=== PATIENT | male | born 1930 | race Native Hawaiian/Other Pacific Islander ===

== ENCOUNTER 2019-01-24 11:51 | Outpatient (CLI) | payer OTHER | END 2019-01-24 11:55 | disposition short-term general hospital (02) | LOC: AMB 11:51 | DX: R53.1 Weakness (principal); M79.605 Pain in left leg; M79.604 Pain in right leg; R06.09 Other forms of dyspnea | CPT/HCPCS: A0425; A0429 ==

== ENCOUNTER 2019-01-24 12:08 | Inpatient (IN) | payer OTHER ==
[~2019-01-24] VITALS: Ht 172.7 cm; Wt 64.9 kg
[2019-01-24] VITALS (8 sets, daily range): BP systolic 145–174; BP diastolic 50–79; TEMP 97.3–98.8; Ht 172.7 cm; Wt 64.9 kg
[2019-01-24 13:14] LABS: PLATELET COUNT 183 K/uL (142-355)
[2019-01-24 13:17] LABS: POTASSIUM 4.4 mmol/L (3.6-5.2)
[2019-01-25 04:00] VITALS: BP 152/61; TEMP 98.1
[2019-01-25 08:00] VITALS: BP 199/61; TEMP 97.9
[2019-01-25 10:49] LABS: PLATELET COUNT 176 K/uL (142-355)
[2019-01-25 11:02] LABS: POTASSIUM 3.7 mmol/L (3.6-5.2)
[2019-01-25 12:00] VITALS: BP 132/80; TEMP 98.6
[2019-01-25 16:00] VITALS: BP 160/58; TEMP 98.2
[2019-01-25 20:32] VITALS: BP 160/64; TEMP 98.2
[2019-01-26 00:49] VITALS: BP 180/63; TEMP 98.4
[2019-01-26 04:00] VITALS: BP 157/45; TEMP 97.9
[2019-01-26 05:17] LABS: PLATELET COUNT 172 K/uL (142-355)
[2019-01-26 05:49] LABS: POTASSIUM 4.1 mmol/L (3.6-5.2)
[2019-01-26 08:00] VITALS: BP 166/71; TEMP 98.1
[2019-01-26 12:00] VITALS: BP 142/46; TEMP 98.1
[2019-01-26 16:00] VITALS: BP 154/55; TEMP 98.2
[2019-01-26 19:56] VITALS: BP 151/48; TEMP 97.7
[2019-01-27 04:22] VITALS: BP 172/64; TEMP 98
[2019-01-27 08:00] VITALS: BP 150/70; TEMP 98.3
[2019-01-27 08:46] LABS: POTASSIUM 3.9 mmol/L (3.6-5.2)
[2019-01-27 09:32] LABS: PLATELET COUNT 197 K/uL (142-355)
[2019-01-27 12:00] VITALS: BP 168/73; TEMP 97.6
== END 2019-01-27 15:30 | disposition swing bed (61) | DRG 811 ==
LOC: ED 12:08 → MED/SURG 14:50
PROVIDERS: Family Medicine; Internal Medicine; ADMIT Family Medicine
PROC: 30233N1 Transfusion of Nonautologous Red Blood Cells into Peripheral Vein, Percutaneous Approach (ICD-10-PCS; 2019-01-24)
PROC: 30233N1 Transfusion of Nonautologous Red Blood Cells into Peripheral Vein, Percutaneous Approach (ICD-10-PCS; principal; 2019-01-25)
DX: D50.0 Iron deficiency anemia secondary to blood loss (chronic) (principal); K29.61 Other gastritis with bleeding; R00.1 Bradycardia, unspecified; I10 Essential (primary) hypertension; K29.60 Other gastritis without bleeding; E86.0 Dehydration; R53.1 Weakness; M15.8 Other polyosteoarthritis; Z91.19 Patient's noncompliance with other medical treatment and regimen; R42 Dizziness and giddiness; D72.825 Bandemia; R62.7 Adult failure to thrive; R26.89 Other abnormalities of gait and mobility; Z91.81 History of falling
CPT/HCPCS: 36415; 80048; 80053; 81000; 82272; 82550; 82607; 82728; 83090; 83540; 83550; 83880; 83918; 84443; 84466; 84484; 85007; 85027; 86850; 86900; 86901; 86922; 93005; 93306; 96374; 99284; J0456; J1940; J2916; J3490; P9016; Q0138

== ENCOUNTER 2019-01-27 15:30 | Inpatient (IN) | payer OTHER ==
[~2019-01-27] VITALS: Ht 172.7 cm; Wt 67.2 kg
[2019-01-27 16:33] VITALS: BP 162/58; TEMP 98.6; Ht 172.7 cm; Wt 67.2 kg
[2019-01-27 20:00] VITALS: BP 137/53; TEMP 97.7
[2019-01-28 07:30] VITALS: BP 158/86; TEMP 98.4
[2019-01-28 19:30] VITALS: BP 173/59; TEMP 99
[2019-01-29 07:30] VITALS: BP 157/62; TEMP 98.3
[2019-01-29 19:00] VITALS: BP 126/51; TEMP 98.6
[2019-01-30 08:00] VITALS: BP 156/60; TEMP 98.7
[2019-01-30 21:19] VITALS: BP 162/63; TEMP 98.3
[2019-01-31 08:00] VITALS: BP 155/64; TEMP 97.3
[2019-01-31 19:00] VITALS: BP 153/55; TEMP 97.9
[2019-01-31 20:00] VITALS: BP 153/55; TEMP 97.9
[2019-02-01 08:00] VITALS: BP 168/52; TEMP 98.1
[2019-02-01 20:07] VITALS: BP 142/52; TEMP 98
[2019-02-02 08:00] VITALS: BP 156/53; TEMP 97.5
[2019-02-02 20:09] VITALS: BP 136/49; TEMP 98.5
[2019-02-03 08:00] VITALS: BP 160/52; TEMP 97.4
[2019-02-03 19:30] VITALS: BP 124/50; TEMP 97.7
[2019-02-04 08:00] VITALS: BP 165/48; TEMP 98
== END 2019-02-04 10:36 | disposition home health service (06) | DRG 555 ==
LOC: MED/SURG 15:30
PROVIDERS: ADMIT Internal Medicine
DX: M62.81 Muscle weakness (generalized) (principal); J18.8 Other pneumonia, unspecified organism; D64.89 Other specified anemias; R26.89 Other abnormalities of gait and mobility; R62.7 Adult failure to thrive; I10 Essential (primary) hypertension; M15.8 Other polyosteoarthritis; Z91.14 Patient's other noncompliance with medication regimen; H91.3 Deaf nonspeaking, not elsewhere classified
CPT/HCPCS: 94640; 94664; 94760